=== PATIENT | male | born 1960 | race Caucasian/White ===

== ENCOUNTER → 2017-05-06 | Outpatient (CLI) | payer MEDICAID ==
[~2017-05-06] MED LIST: LORTAB 7.5-5001 TAB; TEMAZEPAM
--- NOTE | ~2017-05-06 | MR165 ---
[facility] A Service of [facility] RADIOLOGY TEXT RESULTS PATIENT: BERNADETTE FAJARDO LOCATION: [facility] : 62 UNIT #: [id number] AGE: [address]: Yuri Driver MD SEX: M ORDER DR: [id number] [address] [id number] O MR#: [id number] Acc #: [id number] NAME: BERNADETTE FAJARDO : 1960 SEX: M STUDY DATE/TIME: 05/06/2017 9:29 UNIT: [facility] ROOM: STUDY DESCRIPTION: MR Shoulder Wo Contrast Rt Attending Physician: Yuri Driver M.D. Referring Physician: Yuri Driver M.D. Ordering Physician: Yuri Driver M.D. Primary Care Physician: Primary Care Physician No MRI CENTER REPORT This report is preliminary unless electronic signature is present. EXAM MRI of the right shoulder without contrast HISTORY 56-year-old male complains of right shoulder pain, limited range of motion, decreased strength. Symptoms for approximately a year. Evaluate for rotator cuff tear. COMPARISON Right shoulder films 04/30/2017 TECHNIQUE Multiplanar multiecho imaging was performed of the right shoulder utilizing a high field magnet dedicated protocol. FINDINGS Mild AC joint arthropathy. No significant periarticular inflammation. Glenohumeral joint fluid within normal limits. Partial-thickness articular-sided tear within the supraspinatus tendon within the critical zone measuring about 9 mm medial to lateral by 18 mm AP dimension. This is estimated to involve about 50% of the thickness of the tendon. Infraspinatus, teres minor and subscapularis tendons appear intact. No muscle atrophy or edema. Superior labrum, biceps anchor and long tendon of the biceps appears intact. Anterior and posterior labrum unremarkable. Articular cartilage appears normal. Extraarticular soft tissues appear normal. IMPRESSION 1. 9 x 18 mm partial-thickness articular-sided tear critical zone supraspinatus tendon with mild tendinopathy. 2. Mild AC joint arthropathy. [facility] A Service of [facility] RADIOLOGY TEXT RESULTS PATIENT: BERNADETTE FAJARDO LOCATION: [facility] : 62 UNIT #: [id number] AGE: [address]: Yuri Driver MD SEX: M ORDER DR: Dictated by... Gibran Samayoa M.D. THIS IS AN ELECTRONICALLY VERIFIED REPORT Gibran Samayoa M.D. at 05/07/2017 7:33 AM CIRILO/james TD: 05/06/2017 22:01 JOB #: [id number] MRI CENTER REPORT Page 1 of 1
== END | disposition home or self-care (01) ==
LOC: SMRI 09:00
DX: M75.81 Other shoulder lesions, right shoulder (principal); M75.111 Incomplete rotator cuff tear or rupture of right shoulder, not specified as traumatic; M19.011 Primary osteoarthritis, right shoulder
CPT/HCPCS: 73221